=== PATIENT | female | born 1990 | race Caucasian/White ===

== ENCOUNTER 2016-08-05 16:16 | Emergency (ER) | payer OTHER ==
[~2016-08-05] VITALS: Ht 162.6 cm; Wt 72.7 kg
[~2016-08-05 16:16] MED LIST: FLUO40CA PO; LEVO500T79 PO; MONT10TA23 PO; NPR500T PO; TRAM50TA2 PO
[2016-08-05 16:30] VITALS: BP_SYST 142; PULSE 100; RESP 18; O2SAT 99
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
[2016-08-05 19:18] VITALS: BP 121/68; PULSE 98; RESP 18; O2SAT 100
--- NOTE | 2016-08-05 19:20 | DRSVH ---
PROCEDURE: US VEINOUS LEG DUPLEX UNILATERAL, LEFT INDICATIONS: Leg Pain TECHNIQUE: Real-time imaging, as well as color and pulse Doppler interrogation, were performed of the lower extr emity deep veins from the inguinal ligament to the popliteal fossa. COMPARISON: None. FINDINGS: The deep veins are normally compressible, and free of intraluminal thrombus. Color and pu lse Doppler demonstrate normal phasic intraluminal flow. There is normal augmentation response to di stal compression maneuver. IMPRESSION: No deep vein thrombosis of the left lower extremity. Dictated by: Leigh Jacobo M.D. on 08/05/2016 at 19:18 Approved by: Leigh Jacobo M.D. on 08/05/2016 at 19:18
[2016-08-05] MEDS ORDERED: IBUP-1827 PO (19:39)
[2016-08-05 19:44] VITALS: BP 121/68; PULSE 98; RESP 18; O2SAT 100
== END 2016-08-05 19:46 | disposition home or self-care (01) ==
LOC: SED 16:16
DX: G58.9 Mononeuropathy, unspecified (principal); Z88.0 Allergy status to penicillin; Z88.2 Allergy status to sulfonamides; Z88.5 Allergy status to narcotic agent; Z91.040 Latex allergy status; Z88.1 Allergy status to other antibiotic agents

== ENCOUNTER 2016-08-18 08:12 | Emergency (ER) | payer OTHER ==
[~2016-08-18] VITALS: Ht 162.6 cm; Wt 72.7 kg
[~2016-08-18 08:12] MED LIST changes: +IBUP-1827 PO
[2016-08-18 08:15] VITALS: BP 120/79; PULSE 91; RESP 18; O2SAT 96
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
[2016-08-18] MEDS ORDERED: TdaP Vaccine 0.5 mL Inj IM ONE (08:40)
[2016-08-18 09:38] VITALS: BP 114/72; PULSE 90; RESP 20; O2SAT 100
[2016-08-18] MEDS ORDERED: CLIN-78 PO (09:44)
[2016-08-18] MEDS ORDERED: HYDR-4003 PO (09:44)
--- NOTE | 2016-08-18 09:47 | DRSVH ---
PROCEDURE: X-RAY FINGERS, TWO VIEWS INDICATIONS: pain TECHNIQUE: AP hand, 2 views of the second finger(s) acquired. COMPARISON: None. FINDINGS: Bones: No fractures or dislocations. No suspicious bony lesions. Areas underlying rings on the thi rd and fourth digits are suboptimally evaluated. Soft tissues: No suspicious soft tissue calcifications. IMPRESSION: No visualized acute fracture or dislocation. However, if clinical concern and/or pain pe rsist, short interval imaging followup in 7-10 days is recommended, as occult injury cannot be defini tively excluded. Dictated by: Pat Emerson M.D. on 08/18/2016 at 9:46 Approved by: Pat Emerson M.D. on 08/18/2016 at 9:46
[2016-08-18 10:12] VITALS: BP 114/72; PULSE 90; RESP 20; O2SAT 100
== END 2016-08-18 10:09 | disposition home or self-care (01) ==
LOC: SED 08:12
DX: S61.250A Open bite of right index finger without damage to nail, initial encounter (principal); W61.01XA Bitten by parrot, initial encounter; Y92.9 Unspecified place or not applicable; Y93.89 Activity, other specified; Y99.8 Other external cause status; H54.42 Blindness, left eye, normal vision right eye; Z86.73 Personal history of transient ischemic attack (TIA), and cerebral infarction without residual deficits; Z23 Encounter for immunization; Z88.1 Allergy status to other antibiotic agents; Z88.0 Allergy status to penicillin; Z88.2 Allergy status to sulfonamides; Z88.5 Allergy status to narcotic agent; Z88.8 Allergy status to other drugs, medicaments and biological substances